=== PATIENT | female | born 1980 | race Caucasian/White ===

== ENCOUNTER 2018-08-25 11:27 | Outpatient (CLI) | payer MEDICAID, SELFPAY ==
[2018-08-26 10:32] LABS: FSH 2.6 mIU/ml; LH 2.4 mIU/ml
[2018-08-26 10:39] LABS: Prolactin 3.8 ng/ml
[2018-08-27 09:43] LABS: DHEA Sulfate 213 ug/dl (75-410)
[2018-08-27 17:50] LABS: Testosterone, Free 0.27 ng/dL (0.06-1.00); Testosterone, Total 14 ng/dL (8-60)
== END 2018-08-25 11:47 ==
PROVIDERS: PCP Nurse Practitioner Family; Visit Provider Nurse Practitioner Women's Health
DX: N92.6 Irregular menstruation, unspecified (principal); L65.9 Nonscarring hair loss, unspecified
CPT/HCPCS: 36415; 82627; 84402; 84403; 83001; 83002; 84146

== ENCOUNTER 2018-08-25 13:49 | Outpatient (CLI) | payer MEDICAID, SELFPAY ==
--- NOTE | 2018-08-25 12:00 | DI.US_ITS ---
SYMPTOMS/DIAGNOSIS: ABDOMINAL BLOATING X 2 MONTHS, SPOTTING, LOW BACK PAIN, R10.2, R14.0, N92.6, S/P 2 C-SECTIONS PELVIC ULTRASOUND: Comparison is made with May,. Transabdominal and transvaginal exam was performed. The uterus measures 8 x 3.6 x 4.8 cm. An IUD is again seen within the endometrium and appears appropriately positioned. The endometrial stripe measures 9 mm in thickness. A minimal amount of fluid is seen within the endometrium. The ovaries are normal in size and show a few small follicles bilaterally. No suspicious cyst or mass is seen. There is some free fluid in the cul-de-sac, which could be secondary to a ruptured cyst. The kidneys are unremarkable. IMPRESSION: Small amount of fluid in the cul-de-sac. IUD appears appropriately positioned. There is no evidence of mass or torsion.
== END 2018-08-25 14:09 ==
PROVIDERS: PCP Nurse Practitioner Family; Visit Provider Nurse Practitioner Women's Health
DX: N92.6 Irregular menstruation, unspecified (principal); R10.2 Pelvic and perineal pain; R14.0 Abdominal distension (gaseous); Z97.5 Presence of (intrauterine) contraceptive device
CPT/HCPCS: 76830; 76856

== ENCOUNTER 2020-05-30 10:44 | Outpatient (REF) | payer BC, MEDICAID, SELFPAY ==
--- NOTE | 2020-05-30 10:20 | PAPFT_PTH ---
PATIENT: BOBO RIVERA LOC: [facility] U#:[id number] AGE/SX: 40/F ROOM: RE05/30/[address]: Janelle Davies NP : 1980 BED: DIS: 05/30/2020 SPEC #: [id number] RECD: 05/30/20 18:01 STATUS: KJ RERichy #: [id number] TIA: 05/30/20 10:[address]: Janelle Davies NP DEPT: [facility] Cytology RECD BY: Nicole Kaur ENTERED: 05/30/20 18:02 SP TYPE: PAPFT OTHR DR: Chu Rodriges Tissues: 1 - CX/ENDOCX FOR PAP SMEARS Procedures: PAP THIN PREP/[facility] Screening HPV DNA PROBE Comments: [id number]
== END 2020-05-30 11:04 ==
LOC: LBN 10:44
PROVIDERS: PCP Nurse Practitioner Family; Visit Provider Nurse Practitioner Women's Health
DX: Z12.4 Encounter for screening for malignant neoplasm of cervix (principal); Z11.51 Encounter for screening for human papillomavirus (HPV)
CPT/HCPCS: 88142; 87624

== ENCOUNTER 2020-06-27 01:23 | Outpatient (CLI) | payer BC, MEDICAID, SELFPAY ==
--- NOTE | 2020-06-27 08:54 | DI.MAMMO_ITS ---
EXAM: MAMMO SCREENING CLINICAL HISTORY: screening,z12.39 TECHNIQUE: Mammograms were interpreted according to the usual protocol including computer analysis w [employer] CAD system, tomosynthesis and C-view imaging. COMPARISON: No exams were available for comparison. Baseline examination. FINDINGS: The breasts are composed of scattered fibroglandular densities, Breast Density category B. No suspicious masses or suspicious microcalcifications are seen. No skin thickening or abnormal axillary lymph nodes are seen. There has been no significant change from prior exams. IMPRESSION: BI-RADS Category 1, Negative mammogram Yearly screening mammography is recommended. Breast Density - Category B, scattered fibroglandular densities. A negative radiographic report should not delay biopsy if a dominant or clinically suspicious mass is present. Up to ten percent of cancers are not identified on mammography. A negative report may reinforce clinical impression. Adenosis and dense breasts may obscure an underlying neoplasm. False positive reports average 6 to 10%. Patient will receive a letter notifying them of these results.
== END 2020-06-27 01:43 ==
PROVIDERS: PCP Nurse Practitioner Family; Visit Provider Nurse Practitioner Women's Health
DX: Z12.31 Encounter for screening mammogram for malignant neoplasm of breast (principal)
CPT/HCPCS: 77063; 77067